=== PATIENT | male | born 1955 | race Caucasian/White ===

== ENCOUNTER → 2018-08-10 | Outpatient (CLI) | payer OTHER ==
--- NOTE | ~2018-08-10 | 2DMMODE ---
[facility] [place] [address] 2 D/M-MODE ECHOCARDIOGRAM Name: YOSELIN DARNELL Room #: REG [facility]#: [id number] Admission: 08/10/18 Attend Phys: Alok James, Discharge: Date of : 53 Date of Service: 08/10/18 1015 Report #: [id number] THIS REPORT FOR: //name// APPROVED REPORT Study performed: 08/10/2018 09:03:21 EXAM: Comprehensive 2D, Doppler, and color-flow Echocardiogram Patient Location: Out-Patient Status: routine BSA: 2.39 HR: 68 bpm BP: 140/80 mmHg Rhythm: NSR Other Information Study Quality: Adequate Indications Dyspnea Hx: HTN, HLP 2D Dimensions RVDd: 36.45 mm IVSd: 13.00 (7-11mm) LVOT Diam: 22.33 (18-24mm) LVDd: 48.00 mm PWd: 13.00 (7-11mm) Ascending Ao: 38.37 (22-36mm) LVDs: 33.68 (25-40mm) Aortic Root: 37.17 mm Volumes Left Atrial Volume (Systole) Single Plane 4CH: 63.21 mL Single Plane 2CH: 54.21 mL Aortic Valve AoV Peak Fabien.: 1.39 m/s AO Peak Gr.: 7.70 mmHg LVOT Max P.40 mmHg LVOT Max V: 0.92 m/s [place]TH[facility]H Vmax: 2.60 cm2 Mitral Valve E/A Ratio: 0.6 MV Decel. Time: 152.79 ms MV E Max Fabien.: 0.76 m/s [facility] [address] [place] [address] 2 D/M-MODE ECHOCARDIOGRAM Name: YOSELIN DARNELL Room #: [facility]#: [id number] Admission: 08/10/18 Attend Phys: Alok James, Discharge: Date of : 53 Date of Service: 08/10/18 1015 Report #: [id number] MV A Fabien.: 1.31 m/s MV PHT: 44.31 ms IVRT: 83.04 ms Pulmonary Valve PV Peak Fabien.: 1.05 m/s PV Peak Gr.: 4.42 mmHg Pulmonary Vein P Vein S: 0.61 m/s P Vein A: 0.42 m/s P Vein D: 0.46 m/s P Vein A Dur.: 143.0 msec P Vein S/D Ratio: 1.33 Tricuspid Valve RAP Estimate: 5.00 mmHg Left Ventricle The left ventricle is normal size. There is normal LV segmental wall motion. Mild concentric left ventricular hypertrophy. Left ventricular systolic function is normal. LVEF is 55-60%. Mild diastolic dysfunction is present (impaired relaxation pattern). Right Ventricle The right ventricle is normal size. The right ventricular systolic function is normal. Atria The left atrium size is normal. The right atrium size is normal. Aortic Valve The aortic valve is normal in structure. Trace aortic regurgitation. There is no aortic valvular stenosis. Mitral Valve The mitral valve is normal in structure. Mild mitral annular calcification. There is no mitral valve regurgitation noted. No evidence of mitral valve stenosis. Tricuspid Valve The tricuspid valve is normal in structure. Trace tricuspid regurgitation. Unable to assess PA pressure. Pulmonic Valve Pulmonic valve is not well visualized. Trace pulmonic regurgitation. [facility] [place] [employer] [address] 2 D/M-MODE ECHOCARDIOGRAM Name: YOSELIN DARNELL Room #: REG [facility]#: [id number] Admission: 08/10/18 Attend Phys: Alok James, Discharge: Date of : 53 Date of Service: 08/10/18 1015 Report #: [id number] Great Vessels Aortic root and ascending aorta measure at the upper limits of normal. IVC is normal in size and collapses >50% with inspiration. Pericardium There is no pericardial effusion. <Conclusion> The left ventricle is normal size. LVEF is 55-60%. The aortic valve is normal in structure. Trace aortic regurgitation. The mitral valve is normal in structure. Mild mitral annular calcification. There is no mitral valve regurgitation noted. The tricuspid valve is normal in structure. Trace tricuspid regurgitation. Unable to assess PA pressure. Pulmonic valve is not well visualized. Trace pulmonic regurgitation. There is no pericardial effusion. <ELECTRONICALLY SIGNED> By: Pedro Montalvo MD 08/10/18 1015 [id number] Pedro Montalvo MD /INF
== END ==
LOC: CV 08:45
DX: I34.8 Other nonrheumatic mitral valve disorders (principal); I10 Essential (primary) hypertension; R53.83 Other fatigue; E78.5 Hyperlipidemia, unspecified; Z68.32 Body mass index [BMI] 32.0-32.9, adult

== ENCOUNTER → 2019-04-13 | Outpatient (CLI) | payer OTHER | LOC: ULTRA 08:31 | DX: I82.401 Acute embolism and thrombosis of unspecified deep veins of right lower extremity (principal) ==

== ENCOUNTER → 2020-09-30 | Outpatient (CLI) | payer OTHER ==
[~2020-09-30] VITALS: Ht 188 cm; Wt 111.1 kg
[~2020-09-30] MED LIST: BENICAR20 MG PO; CELEXA 20 MG TA20 MG PO; CLOBETASOL; NABUMETONE 500500 M2 PO; NORVASC 2.5 MG2.5 M1 PO; TRAMADOL 50 MG50 MG PO
[2020-09-30 13:17] VITALS: BP 154/103
--- NOTE | 2020-09-30 14:04 | NUR ---
Pain Clinic Assessment: 1. History of Osteoarthritis: Not Applicable History of Rheumatoid Arthritis: Not Applicable 2. Height: 6 ft. 2 in. 188.0 cm. Weight: 245.0 lb. oz. 111.132 kg. Patient's BMI: 31.4 3. Vital Signs: BP: 154/103 Pulse: 77 Resp: 16 Temp: 02 Sat: 98 ECG Mon: 4. Pain Intensity: 1-2 5. Fall Risk: Dizziness: N Needs help standing or walking: N Fallen in the last 3 months: N Fall risk comments: 6. Patient on Blood Thinner: None 7. History of Hypertension: Y 8. Opioid Therapy greater than 6 weeks: Opiate Contract Signed: 9. Risk Assessment Tool Provided: 1-LOW RISK 10. Functional Assessment Tool: 11. Recreational Drug Use: Never Drug Type: Tobacco Use: Never Smoker Tobacco Type: Amount or Packs/day: How Many Years: Alcohol Use: Yes Frequency: Weekly Quant: 4/WEEK
== END ==
LOC: PAIN 06:58
PROVIDERS: ATTEND Anesthesiology Pain Medicine
DX: M54.16 Radiculopathy, lumbar region (principal); I10 Essential (primary) hypertension; Z79.899 Other long term (current) drug therapy; Z79.891 Long term (current) use of opiate analgesic